=== PATIENT | male | born 1970 | race Caucasian/White ===

== ENCOUNTER 2017-01-23 18:49 | Emergency (ER) | payer BC ==
--- NOTE | 2017-01-23 18:53 | PDOC ---
Rapid Medical Evaluation Time Seen by Provider: 01/23/17 18:51 Medical Evaluation: Allergies Allergy/AdvReac Type Severity Reaction Status Date / Time No Known Drug Allergies Allergy Verified 12/05/16 07:26 01/23/17 18:54 46 yo M c/o pain to "left side, under the breast" which radiates to slick LLQ pain. No cp/sob
[2017-01-23 18:56] VITALS: BP 128/76; PULSE 89; TEMP 98.1; BMI 34.1
[2017-01-23] MEDS ORDERED: KETOROLAC TROMETHAMINE 15 MG/ML VIAL IVPUSH ONE (20:46)
[2017-01-23] MEDS ORDERED: SODIUM CHLORIDE 1,000 ML IV STA ×2 (20:46→22:22)
[2017-01-23] MEDS ORDERED: KETOROLAC TROMETHAMINE 15 MG/ML VIAL ONE (21:01)
[2017-01-23 21:04] LABS: BASOPHIL 0.4 % (0-2.0); EOSINOPHIL 0.8 % (0-4.5); MCH 28.6 pg (25.7-33.7); MCHC 32.9 g/dl (32.0-35.9); MEAN CELL VOLUME 86.8 fl (80-96); MEAN PLT VOLUME 9.5 fl (7.5-11.1); NEUTROPHILS 70.2 % (42.8-82.8); PLATELET COUNT 228 K/MM3 (134-434); WHITE BLOOD COUNT 12.7 K/mm3 (4.0-10.0)
[2017-01-23 21:42] LABS: ALBUMIN 3.7 g/dl (3.4-5.0); BILIRUBIN,TOTAL 0.5 mg/dL (0.2-1.0); CALCIUM 9.3 mg/dL (8.5-10.1); CREATININE 1.4 mg/dL (0.7-1.3)
[2017-01-23 22:46] LABS: URINE APPEARANCE CLEAR; URINE BILIRUBIN NEGATIVE (NEGATIVE); URINE BLOOD NEGATIVE (NEGATIVE); URINE COLOR STRAW; URINE GLUCOSE (UA) NEGATIVE (NEGATIVE); URINE KETONE NEGATIVE (NEGATIVE); URINE LEUK ESTERASE NEGATIVE (NEGATIVE); URINE NITRITE NEGATIVE (NEGATIVE); URINE PROTEIN NEGATIVE (NEGATIVE); URINE UROBILINOGEN NEGATIVE E.U./dl (0.2-1.0)
--- NOTE | 2017-01-24 00:05 | PDOC ---
History of Present Illness - General History Source: Patient Exam Limitations: No Limitations - History of Present Illness Initial Comments: 01/24/17 00:25 The patient is a 46 year old male presenting with his , with a significant past medical history of HTN, HLD and diverticulosis, who presents to the emergency department with left abdominal pain for the past 2 days. He describes the pain as moderate, without radiation. He notes that eating foods and movement exacerbates his pain. He reports that he had a similar episode 2 weeks ago for which his PMD prescribed him ciprofloxacin. He notes that the pain had resolved till 2 days ago. He states that he had left over Ciprofloxacin which he began to take once again. He also reports some mild constipation. He reports that he had a ventral hernia repair last month. The patient denies chest pain, shortness of breath, headache and dizziness. Denies fever, chills, nausea, vomit and diarrhea. Allergies: None Past surgical history: Ventral Hernia repair Social history: No alcohol, tobacco or drug use reported PMD - Dr. Timmy Garcia <John Shannon - Last Filed: 01/24/17 00:37> <Lew Lemus - Last Filed: 01/24/17 00:49> - General Chief Complaint: Pain, Acute Stated Complaint: KIDNEY PAIN Time Seen by Provider: 01/23/17 18:51 Past History <John Shannon - Last Filed: 01/24/17 00:37> - Past Medical History GI Disorders: Yes (Diverticulosis) HTN: Yes Hypercholesterolemia: Yes Suicide Attempt (Hx): No - Surgical History Abdominal Surgery: Yes (HERNIA) Orthopedic Surgery: Yes (RT ANKLE FX-SCREWS) - Immunization History Immunization Up to Date: Yes - Psycho/Social/Smoking Cessation Hx Suicidal Ideation: No Smoking Status: No Smoking History: Never smoked Number of Cigarettes Smoked Daily: 0 Information on smoking cessation initiated: No Hx Alcohol Use: Yes (OCCAS) Drug/Substance Use Hx: No Substance Use Type: Alcohol Hx Substance Use Treatment: No <Lew Lemus - Last Filed: 01/24/17 00:49> - Past Medical History Allergies/Adverse Reactions: Allergies Allergy/AdvReac Type Severity Reaction Status Date / Time No Known Drug Allergies Allergy Verified 01/23/17 18:56 Home Medications: Ambulatory Orders Atorvastatin Ca [Lipitor] 20 mg PO DAILY 06/18/13 Lisinopril/Hydrochlorothiazide [Lisinopril-Hctz 10-12.5 mg Tab] 1 each PO DAILY 09/24/16 Oxycodone HCl/Acetaminophen [Percocet 5-325 mg Tablet] 1 tab PO Q4H PRN #42 tablet MDD 6 12/05/16 Ciprofloxacin [Cipro (Restricted To Id)] 500 mg PO BID #20 tablet 01/24/17 Metronidazole [Flagyl -] 500 mg PO QID #40 tablet 01/24/17 Review of Systems - Review of Systems Able to Perform ROS?: Yes Comments:: 01/24/17 00:25 CONSTITUTIONAL: No fever, no chills, no fatigue EYES: No visual changes ENT: No ear pain, no sore throat CARDIOVASCULAR: No chest pain, no palpitations RESPIRATORY: No cough, no SOB GI: +Abdominal pain. No nausea, no vomiting, no constipation, no diarrhea GENITOURINARY: No dysuria, no frequency, no hematuria MUSKULOSKELETAL: No backpain, no joint pain, no myalgias SKIN: No rash NEURO: No headache <John Shannon - Last Filed: 01/24/17 00:37> *Physical Exam - Vital Signs Last Vital Signs Temp Pulse Resp BP Pulse Ox 98.1 F 89 18 128/76 98 01/23/17 18:50 01/23/17 18:50 01/23/17 18:50 01/23/17 18:50 01/23/17 18:50 - Physical Exam Comments: 01/24/17 00:25 CONSTITUTIONAL: Well-appearing; well-nourished; in no apparent distress HEAD: Normocephalic; atraumatic EYES: PERRL; EOM intact ENMT: External appears normal; normal oropharynx NECK: Supple; non-tender; no cervical lymphadenopathy CARD: Normal S1, S2; no murmurs, rubs, or gallops RESP: Normal chest excursion with respiration; breath sounds clear and equal bilaterally; no wheezes, rhonchi, or rales ABD: Soft, non-distended; non-tender; no palpable organomegaly, no palpable hernias EXT: Normal ROM in all four extremities; non-tender to palpation; distal pulses intact SKIN: +Well healed midline supra umbilical abdominal scar. Warm, dry, no rash NEURO: No focal neurological deficiencies. <FlakitaCharlotte floodana Paulsone - Last Filed: 01/24/17 00:37> - Vital Signs Last Vital Signs Temp Pulse Resp BP Pulse Ox 98.1 F 89 18 128/76 98 01/23/17 18:50 01/23/17 18:50 01/23/17 18:50 01/23/17 18:50 01/23/17 18:50 <Lew Lemus - Last Filed: 01/24/17 00:49> ED Treatment Course - LABORATORY CBC & Chemistry Diagram: 01/23/17 21:00 01/23/17 21:00 - ADDITIONAL ORDERS Additional order review: Laboratory Results 01/23/17 01/23/17 22:35 21:00 Sodium 141 Potassium 4.0 Chloride 103 Carbon Dioxide 27 Anion Gap 11 BUN 19 H Creatinine 1.4 H D Creat Clearance w eGFR 54.56 Random Glucose 83 D Calcium 9.3 Total Bilirubin 0.5 D AST 20 D ALT 30 Alkaline Phosphatase 79 Total Protein 7.0 Albumin 3.7 Lipase 125 Urine Color Straw Urine Appearance Clear Urine pH 5.0 Ur Specific Raymond 1.014 Urine Protein Negative Urine Glucose (UA) Negative Urine Ketones Negative Urine Blood Negative Urine Nitrite Negative Urine Bilirubin Negative Urine Urobilinogen Negative Ur Leukocyte Esterase Negative 01/23/17 21:00 RBC 4.26 MCV 86.8 MCHC 32.9 RDW 13.0 MPV 9.5 Neutrophils % 70.2 Lymphocytes % 18.7 D Monocytes % 9.9 Eosinophils % 0.8 Basophils % 0.4 - RADIOLOGY Radiograph Interpretation: 01/24/17 00:37 CT abdomen and pelvis without contrast Reviewed by: Dr. Marcus Taylor Impression: Descending colonic diverticulitis with questionable involvement of the sigmoid colon, without obstruction, abscess or free air. - Medications Given in the ED: ED Medications Discontinued Medications Generic Name Dose Route Start Last Admin Trade Name Freq PRN Reason Stop Dose Admin Sodium Chloride 1,000 mls @ 1,000 mls/hr 01/23/17 20:46 01/23/17 21:05 Normal Saline - IV 01/23/17 21:45 1,000 mls/hr ASDIR STA Administration Sodium Chloride 1,000 mls @ 1,000 mls/hr 01/23/17 22:22 01/23/17 22:24 Normal Saline - IV 01/23/17 23:21 1,000 mls/hr ASDIR STA Administration Ketorolac Tromethamine 15 mg 01/23/17 20:46 01/23/17 21:05 Toradol Injection - IVPUSH 01/23/17 20:47 15 mg ONCE ONE Administration <John Shannon - Last Filed: 01/24/17 00:37> - LABORATORY CBC & Chemistry Diagram: 01/23/17 21:00 01/23/17 21:00 - ADDITIONAL ORDERS Additional order review: Laboratory Results 01/23/17 01/23/17 22:35 21:00 Sodium 141 Potassium 4.0 Chloride 103 Carbon Dioxide 27 Anion Gap 11 BUN 19 H Creatinine 1.4 H D Creat Clearance w eGFR 54.56 Random Glucose 83 D Calcium 9.3 Total Bilirubin 0.5 D AST 20 D ALT 30 Alkaline Phosphatase 79 Total Protein 7.0 Albumin 3.7 Lipase 125 Urine Color Straw Urine Appearance Clear Urine pH 5.0 Ur Specific Raymond 1.014 Urine Protein Negative Urine Glucose (UA) Negative Urine Ketones Negative Urine Blood Negative Urine Nitrite Negative Urine Bilirubin Negative Urine Urobilinogen Negative Ur Leukocyte Esterase Negative 01/23/17 21:00 RBC 4.26 MCV 86.8 MCHC 32.9 RDW 13.0 MPV 9.5 Neutrophils % 70.2 Lymphocytes % 18.7 D Monocytes % 9.9 Eosinophils % 0.8 Basophils % 0.4 - RADIOLOGY Radiology Studies Ordered: Category Date Time Status SPIRAL- RENAL-STONE CT [CT] Stat CT Scan 01/23/17 22:55 Taken - Medications Given in the ED: ED Medications Discontinued Medications Generic Name Dose Route Start Last Admin Trade Name Freq PRN Reason Stop Dose Admin Sodium Chloride 1,000 mls @ 1,000 mls/hr 01/23/17 20:46 01/23/17 21:05 Normal Saline - IV 01/23/17 21:45 1,000 mls/hr ASDIR STA Administration Sodium Chloride 1,000 mls @ 1,000 mls/hr 01/23/17 22:22 01/23/17 22:24 Normal Saline - IV 01/23/17 23:21 1,000 mls/hr ASDIR STA Administration Ketorolac Tromethamine 15 mg 01/23/17 20:46 01/23/17 21:05 Toradol Injection - IVPUSH 01/23/17 20:47 15 mg ONCE ONE Administration <Lew Lemus - Last Filed: 01/24/17 00:49> Medical Decision Making - Medical Decision Making 01/24/17 00:45 Patient is well-appearing 46-year-old male with history of diverticulitis presents with atraumatic left-sided abdominal pain associated with nausea and anorexia. In the ER, patient is awake and alert, nontoxic-appearing, afebrile. CBC reveals minimal leukocytosis with a normal differential. CMP and UA within normal limit. CT that and pelvis reveals descending and sigmoid diverticulitis without evidence of obstruction or perforation. We will administer Cipro and Flagyl. Patient is able tolerate by mouth and will be discharged with liquid diet and by mouth antibiotics with PMD follow-up. <Lew Lemus - Last Filed: 01/24/17 00:49> *DC/Admit/Observation/Transfer - Attestations Scribe Attestion: 01/24/17 00:25 Documentation prepared by John Shannon, acting as dental assistant medical assistant for Lew Lemus MD <John Shannon - Last Filed: 01/24/17 00:37> - Attestations Physician Attestion: 01/24/17 00:45 The documentation was prepared by the scribe under my direct supervision. I have reviewed the documentation which correctly represents the findings, medical decision-making and critical action taken by me. <Lew Lemus - Last Filed: 01/24/17 00:49> Diagnosis at time of Disposition: Diverticulitis of large intestine Qualifiers: Diverticulitis bleeding: without bleeding Diverticulitis complication: without perforation or abscess Qualified Code(s): K57.32 - Diverticulitis of large intestine without perforation or abscess without bleeding - Discharge Dispostion Disposition: HOME Condition at time of disposition: Stable - Referrals Referrals: Timmy Garcia MD [Primary Care Provider] - - Patient Instructions Printed Discharge Instructions: DI for Diverticulitis
[2017-01-24] MEDS ORDERED: CIPROFLOXACIN 400 MG/D5W 200 ML IVPB ONE (00:37)
[2017-01-24] MEDS ORDERED: METRONIDAZOLE 500 MG PREMIXED 100 ML IVPB ONE ×2 (00:37→00:46)
== END 2017-01-24 03:00 | disposition home or self-care (01) ==
LOC: JER 18:49
PROC: 3E0337Z Introduction of Electrolytic and Water Balance Substance into Peripheral Vein, Percutaneous Approach (ICD-10-PCS; principal; 2017-01-23)
PROC: 3E03329 Introduction of Other Anti-infective into Peripheral Vein, Percutaneous Approach (ICD-10-PCS; 2017-01-23)
PROC: 3E03329 Introduction of Other Anti-infective into Peripheral Vein, Percutaneous Approach (ICD-10-PCS; 2017-01-23)
PROC: 3E0333Z Introduction of Anti-inflammatory into Peripheral Vein, Percutaneous Approach (ICD-10-PCS; 2017-01-23)
DX: K57.32 Diverticulitis of large intestine without perforation or abscess without bleeding (principal); I10 Essential (primary) hypertension; E78.5 Hyperlipidemia, unspecified; E78.00 Pure hypercholesterolemia, unspecified
CPT/HCPCS: 36415; 74176; 80053; 81003; 83690; 85025; 99282-25

== ENCOUNTER 2024-01-13 16:27 | Emergency (ER) | payer BC ==
[2024-01-13 16:33] VITALS: BP 147/76; RESP 20; TEMP 98.4; BMI 35.2
[2024-01-13 17:50] LABS: BASO % 0.6 % (0-2.0); EOS % 1.5 % (0-4.5); HEMATOCRIT 40.7 % (35.4-49); HEMOGLOBIN 14.1 GM/dL (11.7-16.9); LYMPH % 47.3 % (8-40); MCH 30.2 pg (25.7-33.7); MCHC 34.6 g/dl (32.0-35.9); MEAN CELL VOLUME 87.4 fl (80-96); MEAN PLT VOLUME 9.7 fl (7.5-11.1); MONO % 10.5 % (3.8-10.2); NEUT % 40.1 % (42.8-82.8); PLATELET COUNT 226 10^3/uL (134-434); RBC 4.65 M/mm3 (4.00-5.60); RDW 13.5 % (11.9-15.9); WHITE BLOOD COUNT 6.2 K/mm3 (4.0-10.0)
[2024-01-13] MEDS: SODIUM CHLORIDE 0.9% 500 ML INFUS.BAG IV ONE (18:02)
[2024-01-13 18:16] LABS: POTASSIUM 4.2 mmol/L (3.5-5.1)
[2024-01-13 18:18] LABS: ALBUMIN 3.9 g/dl (3.4-5.0); BLOOD UREA NITROGEN 13.2 mg/dL (7-18); CALCIUM 9.4 mg/dL (8.5-10.1); MAGNESIUM 2.2 mg/dL (1.8-2.4)
[2024-01-13 18:23] LABS: BILIRUBIN,TOTAL 0.3 mg/dL (0.2-1); TOT PROT 7.6 g/dl (6.4-8.2)
[2024-01-13 18:50] VITALS: PULSE 68
== END 2024-01-13 18:54 | disposition home or self-care (01) ==
LOC: JER 16:27
DX: R42 Dizziness and giddiness (principal); R53.1 Weakness; R53.83 Other fatigue; Z20.822 Contact with and (suspected) exposure to COVID-19
CPT/HCPCS: 0241U-QW; 36415; 71045-TC-FY; 80053; 83735; 84484; 85025; 93005; 93010; 99285-25